=== PATIENT | male | born 1990 | race Hispanic/Latino ===

== ENCOUNTER 2021-12-29 10:32 | Emergency (ER) | payer BC ==
[~2021-12-29] VITALS: Ht 180.3 cm; Wt 91.3 kg
[2021-12-29] MEDS ORDERED: AMOX500C PO (13:58)
[2021-12-29 14:18] VITALS: BP 136/74
== END 2021-12-29 14:19 | disposition home or self-care (01) ==
LOC: M ED 10:32
DX: J03.90 Acute tonsillitis, unspecified (principal); L04.0 Acute lymphadenitis of face, head and neck; Z88.1 Allergy status to other antibiotic agents

== ENCOUNTER 2023-04-17 16:14 | Emergency (ER) | payer BC ==
[~2023-04-17] VITALS: Ht 180.3 cm; Wt 92.9 kg
[~2023-04-17 16:14] MED LIST: AMOX500C PO
[2023-04-17 16:15] VITALS: TEMP 98.2
[2023-04-17] MEDS ORDERED: ACETAMINOPHEN 500 MG TAB PO ONE (19:10)
[2023-04-17] MEDS ORDERED: LIDOCAINE 5% (LIDODERM) PATCH TD ONE (19:10)
[2023-04-17] MEDS ORDERED: LIDO5DIS41 TD (20:36)
[2023-04-17] MEDS ORDERED: IBUP80TA PO (20:37)
[2023-04-17 20:44] VITALS: BP 144/96; O2SAT 99
== END 2023-04-17 20:45 | disposition home or self-care (01) ==
LOC: M ED 16:14
DX: M54.50 Low back pain, unspecified (principal); Z83.3 Family history of diabetes mellitus; Z82.49 Family history of ischemic heart disease and other diseases of the circulatory system; F10.90 Alcohol use, unspecified, uncomplicated; Z88.1 Allergy status to other antibiotic agents; Z79.1 Long term (current) use of non-steroidal anti-inflammatories (NSAID); Z79.891 Long term (current) use of opiate analgesic

== ENCOUNTER → 2023-04-18 | Outpatient (CLI) | payer BC ==
[~2023-04-18] MED LIST changes: +IBUP80TA PO; +LIDO5DIS41 TD
== END ==
LOC: M SOG 07:53
PROVIDERS: ATTEND Orthopaedic Surgery
DX: M25.512 Pain in left shoulder (principal); Z53.9 Procedure and treatment not carried out, unspecified reason

== ENCOUNTER 2023-08-03 16:56 | Emergency (ER) | payer BC ==
[~2023-08-03] VITALS: Ht 182.9 cm; Wt 91.5 kg
[2023-08-03] MEDS: IBUPROFEN 600MG TAB PO ONE (19:44)
[2023-08-03] MEDS: ACETAMINOPHEN 500 MG TAB PO ONE (19:45)
[2023-08-03 20:48] VITALS: BP 139/81; TEMP 99; O2SAT 99
== END 2023-08-03 20:50 | disposition home or self-care (01) ==
LOC: M ED 16:56
DX: J06.9 Acute upper respiratory infection, unspecified (principal); Z88.1 Allergy status to other antibiotic agents